=== PATIENT | male | born 1935 | race Caucasian/White ===

== ENCOUNTER → 2020-08-29 | Outpatient (CLI) | payer MEDICARE ==
[~2020-08-29] MED LIST: AMLO2.5T5 PO; ATOR10TA9 PO; FINA5TAB4 PO; LOSA100T14 PO; TAMS-11 PO; TERA2CAP3 PO
[2020-08-29 16:24] LABS: MICROSCOPIC NOT IND
[2020-08-29 16:31] LABS: BASOPHILS % (AUTO) 1 % (0-1); EOSINOPHILS % (AUTO) 3 % (1-7); LYMPHOCYTES % (AUTO) 16 % (22-44); MEAN CORPUSCULAR HEMOGLOBIN 30.2 pg (27.5-34.5); MEAN CORPUSCULAR HGB CONC 33.4 g/dL (33.2-36.2); MEAN PLATELET VOLUME 8.8 fL (7.4-10.4); MONOCYTES % (AUTO) 10 % (2-9); NEUTROPHILS % (AUTO) 70 % (42-75); PLATELET COUNT 216 x10^3/uL (130-400); RED CELL DISTRIBUTION WIDTH 14.4 % (9.4-14.8)
[2020-08-29 16:33] LABS: MD NO
[2020-08-29 16:34] LABS: ANION GAP 4 mmol/L (5-15); CALCIUM 8.2 mg/dL (8.5-10.1); CHLORIDE 103 mmol/L (98-107); CREATININE 0.86 mg/dL (0.7-1.3)
[2020-08-29 16:37] LABS: INTERNATIONAL NORMALIZED RATIO 0.99 (0.93-1.1); PROTHROMBIN TIME 10.6 Seconds (9.6-11.5)
[2020-08-29 18:24] LABS: ALBUMIN 3.5 g/dL (3.4-5.0)
[2020-08-29 18:35] LABS: ALANINE AMINOTRANSFERASE 20 U/L (12-78); BILIRUBIN,TOTAL 0.4 mg/dL (0.2-1.0)
[2020-08-29 18:37] LABS: ALKALINE PHOSPHATASE 76 U/L (45-117)
== END | disposition home or self-care (01) ==
LOC: STAR 14:51
PROVIDERS: ATTEND Neurological Surgery
DX: Z01.818 Encounter for other preprocedural examination (principal); M41.84 Other forms of scoliosis, thoracic region; J98.11 Atelectasis; J98.6 Disorders of diaphragm; I45.10 Unspecified right bundle-branch block; I49.1 Atrial premature depolarization; M48.061 Spinal stenosis, lumbar region without neurogenic claudication; Z20.822 Contact with and (suspected) exposure to COVID-19
CPT/HCPCS: 36415; 71046; 80053; 81003; 85025; 85610; 85730; 93005; U0003; U0005